=== PATIENT | female | born 1965 | race Two or more races ===

== ENCOUNTER 2024-02-24 06:57 | Day surgery (SDC) | payer BC ==
[~2024-02-24] VITALS: Ht 170.2 cm; Wt 170.1 kg
[2024-02-24] VITALS (10 sets, daily range): BP systolic 140–151; BP diastolic 57–73; PULSE 53–61; RESP 12–22; TEMP 98.1; O2SAT 92–96
[~2024-02-24 06:57] MED LIST: ACET-1881 PO; ALBU108A5 IN; ATOR10TA PO; BIOT10004 PO; CHOL500046 PO; CYCL-839 PO; DAND525C PO; DOCU-94 PO; FURO20TA3 PO; HYDR-3682 PO; LATA0.008 EACHEYE; LOSA25TA5 PO; MAGN84TA4 PO; MEGE40TA4 PO; METO25TA93 PO; MULT-1018 PO; TRAM50TA2 PO
[2024-02-24] MEDS ORDERED: IODIXANOL 320MG/ML 100ML BTL IV ONE ×2 (07:40→07:55)
[2024-02-24] MEDS ORDERED: HEPARIN SODIUM (PORCINE) 5000 UNITS/ML 1ML VIAL ONE (07:49)
[2024-02-24] MEDS ORDERED: VERAPAMIL 2.5MG/ML INJ 2ML VIAL IV ONE (07:49)
[2024-02-24] MEDS ORDERED: fentaNYL CITRATE 100 MCG/2 ML VL ONE (07:50)
[2024-02-24] MEDS ORDERED: MIDAZOLAM HCL 2MG/2ML 2ml VIAL (1mg/ml) ONE (07:50)
[2024-02-24] MEDS ORDERED: LIDOCAINE 2%HCL (LOCAL ANESTH.) INJ 20ML MDV ONE ×2 (07:50→08:27)
[2024-02-24] MEDS ORDERED: NITROGLYCERIN 50MG/250ML 250 ML IV ONE (07:52)
[2024-02-24] MEDS: traMADol HCL 50 MG TAB PO ONE (10:16)
== END 2024-02-24 11:25 | disposition home or self-care (01) ==
LOC: CATH 06:57
PROVIDERS: ATTEND Internal Medicine Cardiovascular Disease
DX: I25.10 Atherosclerotic heart disease of native coronary artery without angina pectoris (principal); I11.0 Hypertensive heart disease with heart failure; I50.9 Heart failure, unspecified; J44.9 Chronic obstructive pulmonary disease, unspecified; E66.01 Morbid (severe) obesity due to excess calories; Z86.711 Personal history of pulmonary embolism; Z87.891 Personal history of nicotine dependence; Z88.1 Allergy status to other antibiotic agents; Z79.899 Other long term (current) drug therapy
CPT/HCPCS: 93458; C1760; C1894; J1644; J2250; J3010; J7030; Q9967; 99152; 99153